=== PATIENT | male | born 1970 | race Two or more races ===

== ENCOUNTER 2017-07-27 17:25 | Inpatient (IN) | payer MEDICAID ==
[~2017-07-27] VITALS: Ht 165.1 cm; Wt 57.6 kg
[2017-07-27] MEDS ORDERED: DEXTROSE 50% SYRINGE 50 ML IV ONE (17:31)
[2017-07-27] MEDS ORDERED: DEXTROSE (50%) 50ML SYRG IV ONE (18:00)
[2017-07-27 19:08] LABS: Red Cell Distribution Width 18.3 % (11.8-14.3); White Blood Cell 17.3 10^3/uL (4.4-10.8)
[2017-07-27 19:10] LABS: Hematocrit 20.5 % (41.0-53.0); Mean Corpuscular Hemoglobin 29.8 pg (28.0-32.0); Mean Corpuscular Volume 96.1 fL (80.0-100.0); Platelet Count (auto) 377 10^3/uL (140-450); Red Blood Cells 2.13 10^6/uL (4.5-5.90)
[2017-07-27 19:14] LABS: Hemoglobin 6.4 g/dL (13.5-17.5); INR 1.23 (0.9-1.15); Partial Thromboplastin Time 45.5 sec (22.64-33.71); Prothrombin Time 13.4 sec (9.37-12.3)
[2017-07-27 19:15] LABS: Basophils % (manual) 0 (0.0-2.0); Blast Cells 0; Eosinophils % (manual) 0 (0-7); Metamyelocytes % 0; Myelocytes % 0; Promyelocytes % 0; Reactive Lymphocytes 0
[2017-07-27 19:22] LABS: Albumin 1.9 g/dL (3.4-5.0); Bilirubin, Total 0.4 mg/dL (0.2-1.0); Calcium 6.1 mg/dL (8.5-10.1); Total Protein 6.8 g/dL (6.4-8.2)
[2017-07-27 19:53] LABS: Band Neutrophils % (manual) 1; Lymphocytes % (manual) 6 (10.0-50.0); Monocytes % (manual) 3 (0-12)
[2017-07-27 20:08] LABS: BUN/Creatinine Ratio 6.7
[2017-07-27 20:12] LABS: Magnesium 4.2 mg/dL (1.6-2.6)
[2017-07-27] MEDS ORDERED: cefTRIAXone 1GM/10ml IVPUSH 10 ML IV ONE (20:45)
[2017-07-27] MEDS ORDERED: NITROGLYCERIN 0.4 MG SL TAB SL PRN (21:15)
[2017-07-27] MEDS ORDERED: MORPHINE SULFATE 4 MG/ML SYR/VIAL IV PRN (21:15)
[2017-07-27] MEDS ORDERED: DEXTROSE (50%) 50ML SYRG IV PRN (21:15)
[2017-07-27] MEDS ORDERED: CALCIUM GLUC 4.65meq/50ml D5AE 50 ML IV ONE (21:15)
[2017-07-27] MEDS ORDERED: ONDANSETRON HCL 4 MG/2 ML VIAL IV PRN (21:15)
[2017-07-27] MEDS ORDERED: ACETAMINOPHEN 325 MG TAB PO PRN (21:15)
[2017-07-27] MEDS ORDERED: FUROSEMIDE 100 MG/10ML VIAL IV ONE (21:15)
[2017-07-27] MEDS ORDERED: TEMAZEPAM 15 MG CAP PO PRN (21:15)
[2017-07-27] MEDS ORDERED: HYDROcodone-ACET 5/325MG TAB PO PRN (21:15)
[2017-07-27] MEDS ORDERED: SODIUM BICARBONATE 8.4% INJ 50ML SYRINGE ONE (21:47)
[2017-07-27] MEDS ORDERED: SODIUM BICARBONATE 8.4 % INJ 50ML VIAL IV ONE (22:00)
[2017-07-27] MEDS ORDERED: cefTAZidime 1 GM in SODIUM CHL 0.9% 50 ML IV ONE (22:00)
[2017-07-27] MEDS ORDERED: cefTAZidime 1 GM in SODIUM CHL 0.9% 50 ML IV SCH (22:00)
[2017-07-27] MEDS ORDERED: SODIUM BICARBONATE 50ML VIAL 100 ML in SOD CHL 0.45% 1,000 ML IV ONE (22:15)
[2017-07-27 23:30] VITALS: BP 151/82
[2017-07-28] VITALS (14 sets, daily range): BP systolic 104–161; BP diastolic 57–86
[2017-07-28] MEDS ORDERED: SODIUM BICARBONATE 8.4 % INJ 50ML VIAL IV ONE ×2 (01:00)
[2017-07-28] MEDS ORDERED: ETOMIDATE (2MG/ML) 20ML VIAL IV ONE ×2 (02:55→03:00)
[2017-07-28] MEDS ORDERED: SUCCINYLCHOLINE CHLORIDE 20 MG/ML 10ML VIAL IV ONE ×2 (02:55→03:00)
[2017-07-28] MEDS: PROPOFOL 100 ML IV SCH ×2 (02:58→15:40)
[2017-07-28] MEDS: CLINDAMYCIN 600MG IV 50 ML IV SCH ×3 (03:42→14:17)
[2017-07-28 03:53] LABS: Hematocrit 24.1 % (41.0-53.0); Hemoglobin 7.8 g/dL (13.5-17.5); Mean Corpuscular Hemoglobin 29.8 pg (28.0-32.0); Mean Corpuscular Hgb Conc. 32.4 g/dL (32.0-36.0); Mean Corpuscular Volume 91.9 fL (80.0-100.0); Platelet Count (auto) 370 10^3/uL (140-450); Red Blood Cells 2.62 10^6/uL (4.5-5.90); Red Cell Distribution Width 16.6 % (11.8-14.3); White Blood Cell 18.6 10^3/uL (4.4-10.8)
[2017-07-28 03:58] LABS: Albumin 1.9 g/dL (3.4-5.0); Basophils % (manual) 0 (0.0-2.0); Blast Cells 0; Calcium 6.5 mg/dL (8.5-10.1); Metamyelocytes % 0; Promyelocytes % 0; Reactive Lymphocytes 0
[2017-07-28 04:07] LABS: Bilirubin, Total 0.5 mg/dL (0.2-1.0); Total Protein 7.1 g/dL (6.4-8.2)
[2017-07-28 04:43] LABS: BUN/Creatinine Ratio 6.5
[2017-07-28 05:10] LABS: Band Neutrophils % (manual) 5; Eosinophils % (manual) 1 (0-7); Lymphocytes % (manual) 10 (10.0-50.0); Monocytes % (manual) 6 (0-12); Myelocytes % 1
[2017-07-28] MEDS: InsuLIN REG 1unit/0.01ml Soln (100units/ml) SC SCH ×3 (06:00→12:15)
[2017-07-28] MEDS: ACCU-CHEK COMFORT CURVE STRIP VI SCH ×3 (06:23→12:15)
[2017-07-28] MEDS: FUROSEMIDE 40 MG/4 ML VIAL IV SCH ×2 (06:26→19:00)
[2017-07-28] MEDS ORDERED: ASPirin 81 mg TAB PO SCH (10:00)
[2017-07-28] MEDS: PANTOPRAZOLE 40 MG/10 ML VIAL IV SCH (10:00)
[2017-07-28] MEDS ORDERED: SODIUM BICARB 50ML SYR 100 ML in SOD CHL 0.45% 1,000 ML IV SCH (12:15)
[2017-07-28] MEDS ORDERED: SODIUM BICARBONATE 50ML VIAL 100 ML in SOD CHL 0.45% 1,000 ML IV SCH (12:30)
[2017-07-28] MEDS: MORPHINE SULFATE 100 MG in D5W 5% 90 ML IV SCH (13:48)
[2017-07-28] MEDS ORDERED: cefTAZidime 0.5 GM in SODIUM CHL 0.9% 50 ML IV SCH (21:00)
[2017-07-29] VITALS (32 sets, daily range): BP systolic 90–122; BP diastolic 49–68
[2017-07-29] MEDS: FUROSEMIDE 40 MG/4 ML VIAL IV SCH ×2 (06:00→18:00)
[2017-07-29] MEDS ORDERED: NOREPINEPHRINE 8 MG/250ML KIT 250 ML IV SCH (07:15)
[2017-07-29] MEDS ORDERED: NOREPINEPHRINE 8 MG/250ML KIT 250 ML IV ONE (07:18)
[2017-07-29] MEDS: PANTOPRAZOLE 40 MG/10 ML VIAL IV SCH (10:11)
[2017-07-29] MEDS: MORPHINE SULFATE 100 MG in D5W 5% 90 ML IV SCH (13:07)
[2017-07-29] MEDS ORDERED: CALC667C PO (15:15)
[2017-07-29] MEDS ORDERED: PANC24002 PO (15:15)
[2017-07-29] MEDS ORDERED: LOPE2CAP PO (15:15)
[2017-07-29] MEDS ORDERED: FURO40TA4 PO (15:15)
[2017-07-29] MEDS ORDERED: CALC0.5C PO (15:15)
[2017-07-29] MEDS ORDERED: METO-158 PO (15:15)
[2017-07-29] MEDS ORDERED: SODI650T PO (15:15)
[2017-07-29] MEDS ORDERED: LORazepam 2MG/ML-1ML VIAL IV PRN (17:30)
[2017-07-29] MEDS ORDERED: MORPHINE SULFATE 4 MG/ML SYR/VIAL IV PRN (17:30)
== END 2017-07-30 00:06 | disposition expired | DRG 720 ==
LOC: ER 17:41 → TELE 17:42 → ICU WEST 07-29 12:14
PROVIDERS: ADMIT Nurse Practitioner; ATTEND Internal Medicine
PROC: 5A09357 Assistance with Respiratory Ventilation, Less than 24 Consecutive Hours, Continuous Positive Airway Pressure (ICD-10-PCS; 2017-07-27)
PROC: 30233N1 Transfusion of Nonautologous Red Blood Cells into Peripheral Vein, Percutaneous Approach (ICD-10-PCS; 2017-07-27)
PROC: 5A1945Z Respiratory Ventilation, 24-96 Consecutive Hours (ICD-10-PCS; principal; 2017-07-28)
PROC: 0BH17EZ Insertion of Endotracheal Airway into Trachea, Via Natural or Artificial Opening (ICD-10-PCS; 2017-07-28)
PROC: 5A09357 Assistance with Respiratory Ventilation, Less than 24 Consecutive Hours, Continuous Positive Airway Pressure (ICD-10-PCS; 2017-07-28)
DX: A41.9 Sepsis, unspecified organism (principal); J96.00 Acute respiratory failure, unspecified whether with hypoxia or hypercapnia; S26.99XA Other injury of heart, unspecified with or without hemopericardium, initial encounter; G93.41 Metabolic encephalopathy; I96 Gangrene, not elsewhere classified; N18.6 End stage renal disease; E87.2 Acidosis; I12.0 Hypertensive chronic kidney disease with stage 5 chronic kidney disease or end stage renal disease; E11.52 Type 2 diabetes mellitus with diabetic peripheral angiopathy with gangrene; Z99.2 Dependence on renal dialysis; E11.621 Type 2 diabetes mellitus with foot ulcer; E11.22 Type 2 diabetes mellitus with diabetic chronic kidney disease; E11.65 Type 2 diabetes mellitus with hyperglycemia; E87.8 Other disorders of electrolyte and fluid balance, not elsewhere classified; Z91.19 Patient's noncompliance with other medical treatment and regimen; L97.509 Non-pressure chronic ulcer of other part of unspecified foot with unspecified severity; D64.9 Anemia, unspecified; E11.649 Type 2 diabetes mellitus with hypoglycemia without coma; G47.00 Insomnia, unspecified; Z66 Do not resuscitate; N48.29 Other inflammatory disorders of penis; Z51.5 Encounter for palliative care; R74.8 Abnormal levels of other serum enzymes; Z88.1 Allergy status to other antibiotic agents; Z82.49 Family history of ischemic heart disease and other diseases of the circulatory system; Z89.422 Acquired absence of other left toe(s)
CPT/HCPCS: 36415; 36430; 36600; 51702; 71045; 80053; 82805; 82962; 83605; 83735; 84484; 85007; 85027; 85610; 85730; 86850; 86900; 86901; 86920; 87040; 87070; 87077; 87081; 87186; 87205; 93005; 94002; 94003; 94660; 96365; 96375; 99291; C9113; J0330; J0610; J2270; J2704; J3490; J7060